=== PATIENT | female | born 1960 | race Caucasian/White ===

== ENCOUNTER 2020-02-28 00:36 | Emergency (ER) | payer SELFPAY ==
[~2020-02-28] VITALS: Ht 167.6 cm; Wt 64.4 kg
[2020-02-28 00:42] VITALS: BP 125/92
[2020-02-28] MEDS ORDERED: DOXYCYCLINE 100 MG CAP PO STA (01:01)
[2020-02-28] MEDS ORDERED: CLINDAMYCIN 150 MG CAP PO STA (01:01)
[2020-02-28] MEDS ORDERED: LIDOCAINE/EPI 1% 1:100000 20 ML VIAL INJ ONE ×2 (01:05→01:17)
[2020-02-28] MEDS ORDERED: CLINDAMYCIN 150 MG CAP ONE (01:16)
[2020-02-28] MEDS ORDERED: DOXYCYCLINE 100 MG CAP ONE (01:16)
[2020-02-28] MEDS ORDERED: BACITRACIN OINT 500 UNITS/GM PKT TP ONE ×2 (02:46→02:50)
[2020-02-28 02:50] VITALS: BP 125/92
== END 2020-02-28 02:50 | disposition home or self-care (01) ==
LOC: MED 00:36
DX: S01.511A Laceration without foreign body of lip, initial encounter (principal); Z88.0 Allergy status to penicillin; W54.0XXA Bitten by dog, initial encounter; Y93.89 Activity, other specified; Y92.89 Other specified places as the place of occurrence of the external cause; Y99.8 Other external cause status
CPT/HCPCS: 90471; 90715; 99283; J2001